=== PATIENT | female | born 1970 | race Caucasian/White ===

== ENCOUNTER 2017-04-19 21:28 | Inpatient (IN) | payer OTHER ==
--- NOTE | 2017-04-19 21:56 | ED ---
Chest Pain HPI - General Chief Complaint: Chest Pain Stated Complaint: Chest Pain Time Seen by Provider: 04/19/17 21:33 Source: patient Mode of arrival: wheelchair Limitations: no limitations - History of Present Illness Initial Comments: This patient is a 46-year-old woman who presents to be evaluated for chest pain that started approximately an hour and half before coming here. The patient states that she had been horseback riding at the time. She indicates the left anterior chest. She states that it felt like at tightness, moderate intensity, and was constant. She did not notice any worsening or relieving factors. The patient states that she also was having a numb sensation to the left arm. She had no diaphoresis, dyspnea, palpitations, lightheadedness or syncope. No nausea or vomiting. No other associated symptoms. She states that she stopped riding and she took 2 aspirin and that the pain has completely resolved now. The patient denies any family history of heart disease except that her father did have a valve replacement at age 88. The patient has never been a smoker. She has not had previous stress test. MD Complaint: chest pain -: hour(s) Onset: during exertion Pain Location: left chest Pain Radiation: LUE Severity: moderate Quality: tightness Consistency: constant Improves With: medication-other Worsens With: nothing (Aspirin) Treatments Prior to Arrival: aspirin - Related Data Home Medications Medication Instructions Recorded Confirmed Progesterone, Micronized 100 mg PO HS 04/19/17 04/19/17 [Progesterone] Allergies Allergy/AdvReac Type Severity Reaction Status Date / Time No Known Allergies Allergy Verified 04/19/17 21:51 Review of Systems ROS Statement: Those systems with pertinent positive or pertinent negative responses have been documented in the HPI. ROS Other: All systems not noted in ROS Statement are negative. Constitutional: Denies: fever, chills ENT: Reports: throat pain Respiratory: Denies: cough, dyspnea Cardiovascular: Reports: chest pain. Denies: palpitations, dyspnea on exertion , orthopnea, edema, syncope Gastrointestinal: Denies: abdominal pain, nausea, vomiting, diarrhea Genitourinary: Denies: dysuria, hematuria Musculoskeletal: Denies: back pain Skin: Denies: rash Neurological: Reports: numbness (Left arm). Denies: headache, weakness, paresthesias Psychiatric: Denies: anxiety EKG Findings - EKG Results: EKG: interpreted by ERMD, WNL, sinus rhythm (Rate 80 bpm), normal axis, normal QRS, normal ST/T, no acute changes - ND, Pacemaker, Normal: Normal tracing: normal tracing Past Medical History Past Medical History: No Reported History History of Any Multi-Drug Resistant Organisms: None Reported Past Surgical History: No Surgical Hx Reported Past Psychological History: No Psychological Hx Reported Smoking Status: Never smoker Past Alcohol Use History: None Reported Past Drug Use History: None Reported General Exam Limitations: no limitations General appearance: alert, in no apparent distress Head exam: Present: atraumatic, normocephalic Eye exam: Present: normal appearance. Absent: scleral icterus, conjunctival injection Neck exam: Present: normal inspection Respiratory exam: Present: normal lung sounds bilaterally. Absent: respiratory distress, wheezes, rales, rhonchi, stridor, chest wall tenderness Cardiovascular Exam: Present: regular rate, normal rhythm, normal heart sounds. Absent: systolic murmur, diastolic murmur, rubs, gallop GI/Abdominal exam: Present: soft. Absent: distended, tenderness, guarding, rebound, rigid, mass, pulsatile mass, hernia Extremities exam: Present: normal inspection, normal capillary refill. Absent: pedal edema, calf tenderness Back exam: Present: normal inspection. Absent: CVA tenderness (R), CVA tenderness (L) Neurological exam: Present: alert Skin exam: Present: warm, dry, intact, normal color. Absent: rash, cyanosis, diaphoretic, erythema, petechiae, pallor, mottled Course Vital Signs 04/19/17 21:37 Temperature 98.9 F Pulse Rate 73 Respiratory 17 Rate Blood Pressure 135/77 O2 Sat by Pulse 98 Oximetry Chest Pain MDM - MDM Patient is a 46-year-old woman who presents with episode of chest pain that resolved and some left arm symptoms that did remain. Initial EKG nondiagnostic for ND. The patient is found to have minimally elevated troponin. Heparin started. Additional medications given in ED. Case discussed with Dr. Goetz casing mixer on-call and his treatment recommendations incorporated. Disposition Clinical Impression: Acute coronary syndrome Disposition: ADMITTED IP TO THIS [facility] Condition: Serious Referrals: None,Stated [Primary Care Provider] - 1-2 days
[2017-04-19 22:01] LABS: Basophils % (A) 0 %; CHCM 34.7; Eosinophils # (A) 0.1 k/uL (0-0.7); Eosinophils % (A) 1 %; HCT 41.8 % (34.0-46.0); HDW 2.34; HGB 14.9 gm/dL (11.4-16.0); Luc # (Auto) 0.22; Luc % (Auto) 2; Lymphocytes # (A) 1.9 k/uL (1.0-4.8); Lymphocytes % (A) 16 %; MCH 30.9 pg (25.0-35.0); MCHC 35.6 g/dL (31.0-37.0); MCV 86.7 fL (80.0-100.0); Mean Platelet Volume 9.3; Monocytes # (A) 0.6 k/uL (0-1.0); Monocytes % (A) 5 %; Neutrophils # (A) 9.4 k/uL (1.3-7.7); Neutrophils % (A) 77 %; RBC 4.82 m/uL (3.80-5.40); RDW 13.6 % (11.5-15.5); WBC 12.3 k/uL (3.8-10.6)
--- NOTE | 2017-04-19 22:02 | XR ---
EXAMINATION TYPE: XR chest 2V DATE OF EXAM: 04/19/2017 COMPARISON: NONE HISTORY: Chest pain TECHNIQUE: Frontal and lateral views of the chest are obtained. FINDINGS: There is no focal air space opacity. No evidence for pneumothorax. No pleural effusion. The cardiac silhouette size is within normal limits. The osseous structures are grossly intact. IMPRESSION: 1. No acute cardiopulmonary process.
[2017-04-19 22:13] LABS: ALT 27 U/L (9-52); AST 22 U/L (14-36); Alkaline Phosphatase 47 U/L (38-126); Amylase 47 U/L (30-110); Anion Gap 9 mmol/L; Blood Urea Nitrogen 15 mg/dL (7-17); Calcium 9.5 mg/dL (8.4-10.2); Carbon Dioxide 26 mmol/L (22-30); Chloride 104 mmol/L (98-107); Glucose 92 mg/dL (74-99); Magnesium 1.9 mg/dL (1.6-2.3); Non-African American GFR(MDRD) >60 (>60 ml/min/1.73 sqM); Potassium 4.1 mmol/L (3.5-5.1); Sodium 139 mmol/L (137-145); Total Bilirubin 0.8 mg/dL (0.2-1.3); Total Protein 7.2 g/dL (6.3-8.2)
[2017-04-19 22:14] LABS: INR 1.1 (<1.1); Partial Thromboplastin Time 23.6 sec (22.0-30.0); Prothrombin Time 10.9 sec (9.0-12.0)
[2017-04-19 22:45] LABS: Creatine Kinase MB 4.5 ng/mL (0.0-2.4); Troponin I 0.131 ng/mL (0.000-0.034)
[2017-04-19] MEDS ORDERED: HEPARIN SODIUM,PORCINE 5,000 UNIT/ML 1 ML VIAL IV ONE (22:54)
[2017-04-19] MEDS ORDERED: HEPARIN SODIUM,PORCINE 5,000 UNIT/ML 1 ML VIAL IV PRN (22:54)
[2017-04-19] MEDS ORDERED: HEPARIN SODIUM,PORCINE/D5W PMX 25,000 UNIT in DEXTROSE/WATER 1 500ML.BAG IV SCH (23:00)
[2017-04-19] MEDS ORDERED: MORPHINE SULFATE 2 MG/ML SYRINGE IVP PRN (23:08)
[2017-04-19] MEDS ORDERED: NITROGLYCERIN SL TABS 0.4 MG TAB SUBLINGUAL PRN (23:08)
[2017-04-19] MEDS ORDERED: ATORVASTATIN 40 MG TAB PO STA (23:20)
[2017-04-19] MEDS ORDERED: NITROGLYCERIN OINT 1 INCH/GM PACKET TOPICAL STA (23:21)
[2017-04-19] MEDS ORDERED: NITROGLYCERIN SL TABS 0.4 MG TAB SUBLINGUAL STA (23:21)
[2017-04-20 05:08] LABS: Basophils % (A) 0 %; CH 29.6; CHCM 33.9; Eosinophils # (A) 0.1 k/uL (0-0.7); Eosinophils % (A) 2 %; HCT 39.7 % (34.0-46.0); HDW 2.32; HGB 13.7 gm/dL (11.4-16.0); Luc # (Auto) 0.17; Luc % (Auto) 3; Lymphocytes # (A) 1.6 k/uL (1.0-4.8); Lymphocytes % (A) 26 %; MCH 30.2 pg (25.0-35.0); MCHC 34.5 g/dL (31.0-37.0); MCV 87.6 fL (80.0-100.0); Mean Platelet Volume 8.9; Monocytes # (A) 0.4 k/uL (0-1.0); Monocytes % (A) 6 %; Neutrophils # (A) 3.8 k/uL (1.3-7.7); Neutrophils % (A) 63 %; RBC 4.54 m/uL (3.80-5.40); RDW 13.4 % (11.5-15.5); WBC 6.1 k/uL (3.8-10.6); WBC (Perox) 5.92
[2017-04-20 05:16] LABS: Cholesterol 151 mg/dL (<200); HDL Cholesterol 68 mg/dL (40-60); Triglycerides 63 mg/dL (<150)
[2017-04-20 05:36] LABS: Creatine Kinase MB 15.2 ng/mL (0.0-2.4)
[2017-04-20 05:37] LABS: Troponin I 2.8 ng/mL (0.000-0.034)
--- NOTE | 2017-04-20 08:14 | P.CRDCN ---
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 Denies any history of hypertension, no diabetes, no hyperlipidemia, she is a nonsmoker. Her father had open heart surgery in his 70s. She presents to the hospital with symptoms of left-sided chest tightness with discomfort and numbness in her left arm. She states that she had been riding horses just prior to this occurring. She did go in the house and take a couple baby aspirin , relaxed for about an hour, but because the symptoms persisted she came to the emergency room for further evaluation. Initial EKG on presentation here shows normal sinus rhythm with no changes. White blood cell count on arrival 12.3, 6.1 this morning. D-dimer 0.37, potassium 4.1, BUN 15, creatinine 0.6. Troponins 0.13, 2.8. Cholesterol 151, HDL 68, LDL 70, triglycerides 63. At the time of my examination this morning, she is currently chest pain-free. Just feels tired. Blood pressure this morning 96/50 with a heart rate in the 70s. Past Medical History Past Medical History: No Reported History History of Any Multi-Drug Resistant Organisms: None Reported Past Surgical History: No Surgical Hx Reported Past Anesthesia/Blood Transfusion Reactions: Unable to Obtain Additional Past Anesthesia/Blood Transfusion Reaction / Comment(s): no previous surgery Past Psychological History: No Psychological Hx Reported Smoking Status: Never smoker - Past Family History Father Family Medical History: Hypertension Additional Family Medical History / Comment(s): CABG with valve replacement Mother Family Medical History: Cancer, Diabetes Mellitus, Hypertension Additional Family Medical History / Comment(s): breast ca, small cell ca Medications and Allergies Home Medications Medication Instructions Recorded Confirmed Type Progesterone, Micronized 100 mg PO HS 04/19/17 04/19/17 History [Progesterone] Allergies Allergy/AdvReac Type Severity Reaction Status Date / Time No Known Allergies Allergy Verified 04/19/17 21:51 Physical Exam Vitals: Vital Signs Temp Pulse Pulse Pulse Resp BP BP 04/20/17 03:51 97 F L 76 18 96/58 04/20/17 00:00 97.9 F 69 69 18 124/85 04/19/17 23:21 81 16 102/68 04/19/17 21:37 98.9 F 73 17 135/77 Pulse Ox 04/20/17 03:51 99 04/20/17 00:00 100 04/19/17 23:21 97 04/19/17 21:37 98 Intake and Output 04/19/17 04/20/17 04/20/17 22:59 06:59 14:59 Intake Total 322.278 Balance 322.278 Intake: IV 240 NS 240 Intake, IV Titration 82.278 Amount Heparin Sodium,Porcine/ 82.278 D5w Pmx 25,000 unit In Dextrose/Water 1 500ml. bag @ 12 UNITS/KG/HR 13. 06 mls/hr IV .Q24H [facility] Rx #:[id number] Other: Voiding Method Toilet # Voids 1 Weight 54.431 kg 57.3 kg PHYSICAL EXAMINATION: HEENT: Head is atraumatic, normocephalic. Pupils equal, round. Neck is supple. There is no elevated jugular venous pressure. HEART EXAMINATION: Heart S1, S2 normal. No murmur or gallop heard. CHEST EXAMINATION: Lungs are clear to auscultation and precussion. No chest wall tenderness is noted on palpation or with deep breathing. ABDOMEN: Soft, nontender. Bowel sounds are heard. No organomegaly noted. EXTREMITIES: 2+ peripheral pulses with no evidence of peripheral edema and no calf tenderness noted. NEUROLOGIC patient is awake, alert and oriented -3. . Results 04/20/17 04:44 04/19/17 21:43 Cardiac Enzymes 04/19/17 04/19/17 04/20/17 Range/Units 21:43 21:43 04:44 AST 22 (14-36) U/L CK-MB (CK-2) 4.5 H* 15.2 H* (0.0-2.4) ng/mL Troponin I 0.131 H* 2.800 H* (0.000-0.034) ng/mL Coagulation 04/19/17 04/20/17 Range/Units 21:43 04:44 PT 10.9 (9.0-12.0) sec APTT 23.6 30.1 H (22.0-30.0) sec Lipids 04/20/17 Range/Units 04:44 Triglycerides 63 (<150) mg/dL Cholesterol 151 (<200) mg/dL HDL Cholesterol 68 H (40-60) mg/dL CBC 04/19/17 04/20/17 Range/Units 21:43 04:44 WBC 12.3 H 6.1 (3.8-10.6) k/uL RBC 4.82 4.54 (3.80-5.40) m/uL Hgb 14.9 13.7 (11.4-16.0) gm/dL Hct 41.8 39.7 (34.0-46.0) % Plt Count 184 161 (150-450) k/uL Comprehensive Metabolic Panel 04/19/17 Range/Units 21:43 Sodium 139 (137-145) mmol/L Potassium 4.1 (3.5-5.1) mmol/L Chloride 104 (98-107) mmol/L Carbon Dioxide 26 (22-30) mmol/L BUN 15 (7-17) mg/dL Creatinine 0.69 (0.52-1.04) mg/dL Glucose 92 (74-99) mg/dL Calcium 9.5 (8.4-10.2) mg/dL AST 22 (14-36) U/L ALT 27 (9-52) U/L Alkaline Phosphatase 47 (38-126) U/L Total Protein 7.2 (6.3-8.2) g/dL Albumin 4.4 (3.5-5.0) g/dL Current Medications Generic Name Dose Route Start Last Admin Trade Name Freq PRN Reason Stop Dose Admin Heparin Sodium (Porcine) 0 unit 04/19/17 22:54 04/20/17 05:31 Heparin IV 1,375 unit PER PROTOCOL PRN Administration Low PTT Protocol Heparin Sodium/Dextrose 25,000 500 mls @ 13.06 mls/hr 04/19/17 23:00 05:28 unit/ IV Solution IV 15 units/kg/hr .Q24H [facility] 16.32 mls/hr Protocol Titration 12 UNITS/KG/HR Metoprolol Tartrate 25 mg 04/20/17 09:00 Lopressor PO BID [facility] Morphine Sulfate 2 mg 04/19/17 23:08 Morphine Sulfate (Inj) IVP Q5M PRN Chest Pain Nitroglycerin 0.4 mg 04/19/17 23:08 Nitrostat SUBLINGUAL Q5M PRN Chest Pain Intake and Output 04/19/17 04/20/17 04/20/17 22:59 06:59 14:59 Intake Total 322.278 Balance 322.278 Intake: IV 240 NS 240 Intake, IV Titration 82.278 Amount Heparin Sodium,Porcine/ 82.278 D5w Pmx 25,000 unit In Dextrose/Water 1 500ml. bag @ 12 UNITS/KG/HR 13. 06 mls/hr IV .Q24H [facility] Rx #:[id number] Other: Voiding Method Toilet # Voids 1 Weight 54.431 kg 57.3 kg 04/20/17 04:44 04/19/17 21:43 EKG Interpretations (text) EKG shows normal sinus rhythm with no acute changes. Assessment and Plan Plan: Assessment and plan #1 chest pain, suggestive of acute coronary syndrome. Troponins 0.1, 2.8. EKG shows normal sinus rhythm with no acute changes. #2 cardiac risk factors negative for hypertension, no diabetes, no hyperlipidemia, she is a nonsmoker. Father had coronary artery bypass grafting surgery at the age of 70. Plan We will obtain a stat echocardiogram with Doppler study. Continue IV heparin, initiate an aspirin now and daily, continue Lipitor and Nitropaste. Patient has been advised that she may need to undergo cardiac catheterization for more definitive diagnosis. The risks and the benefits were explained to the patient in detail. Further recommendations to follow. DNP note has been reviewed, I agree with a documented findings and plan of care. Patient was seen and examined.
[2017-04-20] MEDS: METOPROLOL TARTRATE 25 MG TAB PO SCH ×3 (09:11→20:45)
[2017-04-20] MEDS ORDERED: ASPIRIN 325 MG TAB PO STA (09:29)
[2017-04-20] MEDS ORDERED: ATORVASTATIN 80 MG TAB PO STA (09:29)
[2017-04-20] MEDS ORDERED: ALPRAZolam 0.25 MG TAB PO PRN (09:29)
[2017-04-20] MEDS ORDERED: NITROGLYCERIN SL TABS 0.4 MG TAB SUBLINGUAL PRN (09:29)
[2017-04-20] MEDS ORDERED: ALPRAZolam 0.5 MG TAB PO PRN (09:29)
[2017-04-20] MEDS ORDERED: SODIUM CHLORIDE 0.9% 1,000 ML in EMPTY BAG 1 BAG IV ONE (09:29)
[2017-04-20] MEDS ORDERED: LIDOCAINE 2% INJ 20 MG/ML (20 ML MDV) ONE (09:50)
[2017-04-20] MEDS ORDERED: VERAPAMIL 2.5 MG/ML 2 ML AMP ONE ×2 (09:50→11:29)
[2017-04-20] MEDS ORDERED: HEPARIN SODIUM 1,000 UN/ML (10ML VL) ONE (09:50)
--- NOTE | 2017-04-20 10:33 | ECHOF ---
Referral Reason:assess lvf MEASUREMENTS -------- HEIGHT: 165.1 cm WEIGHT: 57.2 kg BP: 140/30 IVSd: 0.8 cm (0.6 - 1.1) LVIDd: 4.5 cm (3.9 - 5.3) LVPWd: 1.0 cm (0.6 - 1.1) IVSs: 1.1 cm LVIDs: 3.5 cm LVPWs: 1.1 cm LA Diam: 2.7 cm (2.7 - 3.8) LAESV Index (A-L): 18.60 ml/m Ao Diam: 3.1 cm (2.0 - 3.7) AV Cusp: 1.8 cm (1.5 - 2.6) LA Diam: 2.2 cm (2.7 - 3.8) MV EXCURSION: 22.473 mm (> 18.000) MV EF SLOPE: 90 mm/s (70 - 150) EPSS: 1.2 cm MV E Alexander: 0.60 m/s MV DecT: 192 ms MV A Alexander: 0.54 m/s MV E/A Ratio: 1.11 RAP: 5.00 mmHg RVSP: 18.84 mmHg FINDINGS -------- Sinus rhythm. This was a technically good study. Left ventricular wall thickness is normal. Overall left ventricular systolic function is low-normal with, an EF between 50 - 55 %. Apical anterior LV wall motion is hypokinetic. Apical septum LV wall motion is hypokinetic. The right ventricle is normal in size. Normal LA size by volume 22+/-6 ml/m2. The right atrial size is normal. The aortic valve is trileaflet, and appears structurally normal. No aortic stenosis or regurgitation. The mitral valve is normal. Mild mitral regurgitation is present. Mild tricuspid regurgitation present. There is no evidence of pulmonary hypertension. The right ventricular systolic pressure, as measured by Doppler, is 18.84mmHg. Trace/mild (physiologic) pulmonic regurgitation. The aortic root size is normal. There is no pericardial effusion. CONCLUSIONS -------- 1. Sinus rhythm. 2. Mild tricuspid regurgitation present. 3. There is no evidence of pulmonary hypertension. 4. Trace/mild (physiologic) pulmonic regurgitation. 5. The aortic root size is normal. 6. There is no pericardial effusion. 7. This was a technically good study. 8. Left ventricular wall thickness is normal. 9. Overall left ventricular systolic function is low-normal with, an EF between 50 - 55 %. 10. Apical anterior LV wall motion is hypokinetic. 11. Apical septum LV wall motion is hypokinetic. 12. Normal LA size by volume 22+/-6 ml/m2. 13. The aortic valve is trileaflet, and appears structurally normal. No aortic stenosis or regurgitation. 14. Mild mitral regurgitation is present. JACQUARD FIXER: Yeni Silvestre RDCS
[2017-04-20] MEDS ORDERED: diphenhydrAMINE 50 MG/ML 1 ML VIAL ONE (10:44)
[2017-04-20] MEDS ORDERED: MIDAZOLAM 2 MG/2 ML VIAL ONE (10:44)
[2017-04-20] MEDS: MIDAZOLAM 2 MG/2 ML VIAL IV ONE ×2 (10:59→11:07)
[2017-04-20] MEDS ORDERED: diphenhydrAMINE 50 MG/ML 1 ML VIAL IVP ONE (10:59)
[2017-04-20] MEDS ORDERED: LIDOCAINE 2% INJ 20 MG/ML SQ ONE (11:05)
[2017-04-20 11:07] LABS: Creatine Kinase MB 14.6 ng/mL (0.0-2.4); Troponin I 2.46 ng/mL (0.000-0.034)
[2017-04-20] MEDS: VERAPAMIL SYRINGE (5 MG/10 ML) INTRAARTER ONE ×2 (11:09→11:11)
[2017-04-20] MEDS ORDERED: VERAPAMIL SYRINGE (5 MG/10 ML) INTRAARTER ONE (11:30)
[2017-04-20] MEDS ORDERED: IOHEXOL 350 MG/ML 100 ML BOTTLE INJ ONE (11:31)
[2017-04-20] MEDS ORDERED: RX INFO: IV CONTRAST WAS GIVEN 1 EACH MISC MISCELLANE PRN (11:41)
[2017-04-20] MEDS ORDERED: CLOPIDOGREL 75 MG TAB ONE (14:17)
--- NOTE | 2017-04-20 14:51 | P.HPIM ---
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 Denies any history of hypertension, no diabetes, no hyperlipidemia, she is a nonsmoker. . She presents to the hospital with symptoms of left-sided chest tightness with discomfort and numbness in her left arm, patient denied and diaphoresis but was short of breath. Her chest pain is nonpleuritic not associated with food.. She states that she had been riding horses just prior to this occurring. She did go in the house and take a couple baby aspirin, relaxed for about an hour, but because the symptoms persisted she came to the emergency room for further evaluation. The pain lasted for about one and half hour and improved with supplemental visiting that she was given in ER. Initial EKG on presentation here shows normal sinus rhythm with no changes. Patient's troponin has gone up to around 2.5. Patient underwent cardiac ablation which did not show any occlusive disease. 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 Patient is chest pain-free at this point of time. Patient denied any URI flulike symptoms before this event. Review of Systems REVIEW OF SYSTEMS: CONSTITUTIONAL: No fever, no malaise, no fatigue. HEENT: No recent visual problems or hearing problems. Denied any sore throat. CARDIOVASCULAR: No , orthopnea, PND, no palpitations, no syncope. PULMONARY: , no cough, no hemoptysis. GASTROINTESTINAL: No diarrhea, no nausea, no vomiting, no abdominal pain. Normoactive bowel sounds. NEUROLOGICAL: No headaches, no weakness, no numbness. HEMATOLOGICAL: Denies any bleeding or petechiae. GENITOURINARY: Denies any burning micturition, frequency, or urgency. MUSCULOSKELETAL/RHEUMATOLOGICAL: Denies any joint pain, swelling, or any muscle pain. ENDOCRINE: Denies any polyuria or polydipsia. The rest of the 14-point review of systems is negative. Past Medical History Past Medical History: No Reported History History of Any Multi-Drug Resistant Organisms: None Reported Past Surgical History: No Surgical Hx Reported Past Anesthesia/Blood Transfusion Reactions: Unable to Obtain Additional Past Anesthesia/Blood Transfusion Reaction / Comment(s): no previous surgery Past Psychological History: No Psychological Hx Reported Smoking Status: Never smoker - Past Family History Father Family Medical History: Hypertension Additional Family Medical History / Comment(s): CABG with valve replacement Mother Family Medical History: Cancer, Diabetes Mellitus, Hypertension Additional Family Medical History / Comment(s): breast ca, small cell ca Medications and Allergies Home Medications Medication Instructions Recorded Confirmed Type Progesterone, Micronized 100 mg PO HS 04/19/17 04/19/17 History [Progesterone] Allergies Allergy/AdvReac Type Severity Reaction Status Date / Time No Known Allergies Allergy Verified 04/19/17 21:51 Physical Exam Vitals: Vital Signs Temp Pulse Pulse Pulse Resp BP BP 04/20/17 12:26 98.5 F 79 18 100/63 04/20/17 12:00 66 04/20/17 11:55 98.5 F 66 16 91/59 04/20/17 09:44 04/20/17 08:00 98.8 F 79 16 103/64 04/20/17 03:51 97 F L 76 18 96/58 04/20/17 00:00 97.9 F 69 69 18 124/85 04/19/17 23:21 81 16 102/68 04/19/17 21:37 98.9 F 73 17 135/77 Pulse Ox 04/20/17 12:26 99 04/20/17 12:00 04/20/17 11:55 99 04/20/17 09:44 98 04/20/17 08:00 99 04/20/17 03:51 99 04/20/17 00:00 100 04/19/17 23:21 97 04/19/17 21:37 98 Intake and Output 04/19/17 04/20/17 04/20/17 22:59 06:59 14:59 Intake Total 322.278 340 Balance 322.278 340 Intake: IV 240 100 NS 240 Intake, IV Titration 82.278 Amount Heparin Sodium,Porcine/ 82.278 D5w Pmx 25,000 unit In Dextrose/Water 1 500ml. bag @ 12 UNITS/KG/HR 13. 06 mls/hr IV .Q24H [facility] Rx #:[id number] Oral 240 Other: Voiding Method Toilet # Voids 1 Weight 54.431 kg 57.3 kg PHYSICAL EXAMINATION: GENERAL: The patient is alert and oriented x3, not in any acute distress. Well developed, well nourished. HEENT: Pupils are round and equally reacting to light. EOMI. No scleral icterus. No conjunctival pallor. Normocephalic, atraumatic. No pharyngeal erythema. No thyromegaly. CARDIOVASCULAR: S1 and S2 present. No murmurs, rubs, or gallops. PULMONARY: Chest is clear to auscultation, no wheezing or crackles. ABDOMEN: Soft, nontender, nondistended, normoactive bowel sounds. No palpable organomegaly. MUSCULOSKELETAL: No joint swelling or deformity. EXTREMITIES: No cyanosis, clubbing, or pedal edema. NEUROLOGICAL: Gross neurological examination did not reveal any focal deficits. SKIN: No rashes. Results CBC & Chem 7: 04/20/17 04:44 04/19/17 21:43 Labs: Abnormal Lab Results - Last 24 Hours (Table) 04/19/17 04/19/17 04/20/17 Range/Units 21:43 21:43 04:44 WBC 12.3 H (3.8-10.6) k/uL Neutrophils # 9.4 H (1.3-7.7) k/uL APTT 30.1 H (22.0-30.0) sec Total Creatine Kinase 175 H (30-135) U/L CK-MB (CK-2) 4.5 H* (0.0-2.4) ng/mL Troponin I 0.131 H* (0.000-0.034) ng/mL HDL Cholesterol (40-60) mg/dL 04/20/17 04/20/17 04/20/17 Range/Units 04:44 04:44 10:00 WBC (3.8-10.6) k/uL Neutrophils # (1.3-7.7) k/uL APTT (22.0-30.0) sec Total Creatine Kinase 249 H 277 H (30-135) U/L CK-MB (CK-2) 15.2 H* 14.6 H* (0.0-2.4) ng/mL Troponin I 2.800 H* 2.460 H* (0.000-0.034) ng/mL HDL Cholesterol 68 H (40-60) mg/dL Thrombosis Risk Factor Assmnt - Choose All That Apply Each Factor Represents 1 point: Age 41-60 years Thrombosis Risk Factor Assessment Total Risk Factor Score: 1 Thrombosis Risk Factor Assessment Level: Low Risk Assessment and Plan Plan: Possible acute myocardial infarction: Patient may have had vaso-spastic angina with clean coronaries. As her blood pressure is low we are not starting on any calcium channel maricruz at this point of time. Patient does not appear to have any stress-induced cardiomyopathy. Elevated troponins: Secondary to vaso-spastic angina.
--- NOTE | 2017-04-20 16:44 | CC ---
DATE OF SERVICE: 04/20/2017 PROCEDURE: Left heart catheterization, coronary angiography, and left ventriculography. PERFORMED BY: Dr. Matthieu Arboleda. CLINICAL INFORMATION: Mrs. Omaira Santiago is a 46 year old lady with a family history of premature CAD but no other risk factors. Yesterday, she was with her daughter riding her horses and then she felt an uncomfortable feeling in the chest with numbness in the left arm and also pressure in the chest. With this she stopped the riding, went back home, laid down and continued to have these symptoms. She came into the hospital and by the time she got here, she had relief of symptoms. Her troponin has gone up to 2.8 and has now showed a downward trend suggestive of a non-ST elevation OR. EKG was unremarkable. There was no recurrence of pain. She is hemodynamically stable. She was advised coronary angiography given her presentation and abnormal troponin. Risks, benefits, options and rationale were explained to the patient and her fiance. PROCEDURE NOTE: Under local anesthesia and strict aseptic precautions, a 6 [place] introducer was placed in the right radial artery. I used a 3.5 curved right Jacob catheter to cannulate the right coronary artery and a JL4 catheter for the left coronary artery. A pigtail catheter was used to perform an LV gram. The sheath was taken out and a Vasc band was used to secure hemostasis. Saturation of the fingers of the hands was 97%. The patient tolerated the procedure well without complications. The patient received moderate conscious sedation for a total duration of 37 minutes with a combination of Versed and Benadryl. CARDIAC CATHETERIZATION FINDINGS: The left ventricle end diastolic pressure was 13 mmHg and there was no gradient across the aortic valve. LEFT VENTRICULOGRAM: This was performed in 30 degree DUBOSE projection, revealed the left ventricle which is normal size with preserved systolic function. There was some ventricular ectopy. The ejection fraction appears to be the normal range of about 55% without any clear cut wall motion abnormality. Because of ectopy, the contractility seems somewhat asymmetrical. There is no significant mitral regurgitation. CORONARY ANGIOGRAPHY FINDINGS: Right coronary artery technically a dominant vessel, has no significant disease in the proximal mid or distal portion. Distally bifurcates into PDA and PLV both of which have minor diffuse disease. No significant disease is noted. There is some diffuse irregularity in the PDA branch of the RCA. Overall, no significant disease in the dominant RCA. Left main coronary artery: Short, patent, disease free vessel that bifurcates into LAD and circumflex. Left anterior descending coronary artery: Good caliber vessel extends along the anterior wall gives off septal branches, a good size diagonal branch in the mid portion, runs all the way to the apex and supplies a sizable amount of myocardium. No significant disease in the good sized, good caliber, LAD system. Left posterior circumflex coronary artery: Technically a nondominant vessel gives off a small obtuse marginal in the mid portion. Distally continues as a good obtuse marginal and a small diffusely diseased distal posterolateral branch. This is a small branch with actual tapering. Has mild diffuse disease in it. No significant disease is noted in the nondominant circumflex. FINAL IMPRESSION: This patient has a right dominant system, has no significant obstructive disease of major arteries, has some diffuse disease in the distal branch of the circumflex and PDA branch of the RCA but no focal critical stenosis is noted. Ejection fraction appears to be normal range although there was some ectopy. Filling pressures are normal. RECOMMENDATIONS: The findings were discussed with the patient and her family. I am recommending continued medical therapy with risk factor modifications. No intervention is necessary at this time. I will however obtain a repeat echocardiogram tomorrow to check if there is any takotsubo type picture which was not evident on the study today. While troponin ( ) cannot be explained based on the anatomy, I suspect there may be a small branch that was involved that was not easily ( ) on angiography. I discussed this with the patient and family. BENIGNO
[2017-04-20 17:36] VITALS: RESP 16
[2017-04-20] MEDS: ENOXAPARIN 60 MG/0.6 ML SYRINGE SQ SCH (18:45)
[2017-04-20] MEDS: SODIUM CHLORIDE 0.9% 1,000 ML IV SCH (18:46)
[2017-04-21 06:31] LABS: Basophils % (A) 0 %; CH 29.8; CHCM 34.1; Eosinophils # (A) 0.1 k/uL (0-0.7); Eosinophils % (A) 2 %; HCT 42.1 % (34.0-46.0); HDW 2.33; HGB 14.9 gm/dL (11.4-16.0); Luc # (Auto) 0.19; Luc % (Auto) 3; Lymphocytes # (A) 1.7 k/uL (1.0-4.8); Lymphocytes % (A) 25 %; MCH 31.2 pg (25.0-35.0); MCHC 35.4 g/dL (31.0-37.0); MCV 88.1 fL (80.0-100.0); Mean Platelet Volume 8.8; Monocytes # (A) 0.5 k/uL (0-1.0); Monocytes % (A) 7 %; Neutrophils # (A) 4.3 k/uL (1.3-7.7); Neutrophils % (A) 63 %; RBC 4.78 m/uL (3.80-5.40); RDW 13.8 % (11.5-15.5); WBC 6.9 k/uL (3.8-10.6); WBC (Perox) 7.04
[2017-04-21] MEDS: ENOXAPARIN 60 MG/0.6 ML SYRINGE SQ SCH (06:31)
[2017-04-21] MEDS: SODIUM CHLORIDE 0.9% 1,000 ML IV SCH (07:36)
[2017-04-21] MEDS: METOPROLOL TARTRATE 25 MG TAB PO SCH (07:36)
[2017-04-21 08:34] VITALS: PULSE 78; TEMP 98.2
[2017-04-21] MEDS ORDERED: ATORVASTATIN 40 MG TAB PO SCH (09:00)
[2017-04-21 09:17] VITALS: BP 123/79
--- NOTE | 2017-04-21 14:08 | P.DS ---
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 Denies any history of hypertension, no diabetes, no hyperlipidemia, she is a nonsmoker. . She presents to the hospital with symptoms of left-sided chest tightness with discomfort and numbness in her left arm, patient denied and diaphoresis but was short of breath. Her chest pain is nonpleuritic not associated with food.. She states that she had been riding horses just prior to this occurring. She did go in the house and take a couple baby aspirin, relaxed for about an hour, but because the symptoms persisted she came to the emergency room for further evaluation. The pain lasted for about one and half hour and improved with supplemental visiting that she was given in ER. Initial EKG on presentation here shows normal sinus rhythm with no changes. Patient's troponin has gone up to around 2.5. Patient underwent cardiac ablation which did not show any occlusive disease. 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 Patient is chest pain-free at this point of time. Patient denied any URI flulike symptoms before this event. 04/21/2017 Patient is clinically doing well and is cleared for discharge from cardiac perspective and cardiology we will address a discharge cardiac medications. 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 Patient Condition at Discharge: Serious Plan - Discharge Summary New Discharge Prescriptions: No Action Progesterone, Micronized [Progesterone] 100 mg PO HS Discharge Medication List Progesterone, Micronized [Progesterone] 100 mg PO HS 04/19/17 [History] Follow up Appointment(s)/Referral(s): Shannon Arboleda MD [STAFF PHYSICIAN] - 04/24/17 4:45 pm None,Stated [Primary Care Provider] - 1-2 days
--- NOTE | 2017-04-21 16:28 | PN ---
Mrs. Santiago underwent cardiac cath yesterday. She presented with a non-ST elevation NM but cardiac cath did not reveal any evidence of obstruction of any of her major arteries, possibly some branch may be occluded. Her right radial cath site is clean and dry. Vital signs are stable. S1, S2 heard normally. Lungs are clear. Abdomen and lower extremity exam is unchanged. I am recommending that she should be discharged on aspirin and Lipitor and a small dose of beta maricruz. Advised not to return to work ( ) see her on Monday. Discharge instructions regarding, activity, diet and medications were given. BENIGNO
== END 2017-04-21 15:05 | disposition home or self-care (01) | DRG 287 ==
LOC: EC 21:28 → 6SEL 23:08
PROVIDERS: ADMIT Hospitalist; ATTEND Hospitalist
PROC: 4A023N7 Measurement of Cardiac Sampling and Pressure, Left Heart, Percutaneous Approach (ICD-10-PCS; principal; 2017-04-19)
PROC: B2111ZZ Fluoroscopy of Multiple Coronary Arteries using Low Osmolar Contrast (ICD-10-PCS; principal; 2017-04-19)
PROC: B2151ZZ Fluoroscopy of Left Heart using Low Osmolar Contrast (ICD-10-PCS; principal; 2017-04-19)
DX: I20.9 Angina pectoris, unspecified (principal); Z80.3 Family history of malignant neoplasm of breast; Z82.49 Family history of ischemic heart disease and other diseases of the circulatory system; Z83.3 Family history of diabetes mellitus
CPT/HCPCS: 36415; 71020; 80053; 80061; 82150; 82550; 82553; 83690; 83735; 84484; 85025; 85379; 85610; 85730; 93005; 93306; 93458; 94760; 96365; 96376; 99285

== ENCOUNTER → 2017-05-12 | Outpatient (CLI) | payer OTHER ==
--- NOTE | 2017-05-15 11:44 | MM ---
Reason for exam: screening (asymptomatic). Last mammogram was performed 1 year and 7 months ago. History: Patient had first child at age 37. Family history of breast cancer in mother at age 69. Taking hormonal contraceptives beginning at age 44. Physical Findings: A clinical breast exam by your physician is recommended on an annual basis and results should be correlated with mammographic findings. MG 3D Screening Mammo W/Cad Bilateral CC and MLO view(s) were taken. Prior study comparison: October 07, 2015, bilateral MG 3d screening mammo w/cad. May 26, 2014, bilateral MG screening mammo w CAD. The breast tissue is extremely dense which could obscure a lesion on mammography. Finding: There are typically benign calcifications in the right breast. No significant changes in finding since October 07, 2015 and May 26, 2014. ASSESSMENT: Benign, BI-RAD 2 RECOMMENDATION: Routine screening mammogram of both breasts in 1 year.
== END ==
LOC: RADMAMWWP 13:36
PROVIDERS: ATTEND Obstetrics & Gynecology
DX: Z12.31 Encounter for screening mammogram for malignant neoplasm of breast (principal); Z80.3 Family history of malignant neoplasm of breast
CPT/HCPCS: 77063; G0202

== ENCOUNTER → 2018-08-08 | Outpatient (CLI) | payer OTHER ==
--- NOTE | 2018-08-10 10:04 | MM ---
Reason for exam: screening (asymptomatic). Last mammogram was performed 1 year and 3 months ago. History: Patient had first child at age 37. Family history of breast cancer in mother at age 69. Taking hormonal contraceptives beginning at age 44. Physical Findings: A clinical breast exam by your physician is recommended on an annual basis and results should be correlated with mammographic findings. MG 3D Screening Mammo W/Cad Bilateral CC and MLO view(s) were taken. Prior study comparison: May 12, 2017, bilateral MG 3d screening mammo w/cad. October 07, 2015, bilateral MG 3d screening mammo w/cad. The breast tissue is extremely dense which could obscure a lesion on mammography. No significant changes when compared with prior studies. ASSESSMENT: Benign, BI-RAD 2 RECOMMENDATION: Routine screening mammogram of both breasts in 1 year.
== END | disposition home or self-care (01) ==
LOC: RADMAMWWP 12:39
PROVIDERS: ATTEND Obstetrics & Gynecology
DX: Z12.31 Encounter for screening mammogram for malignant neoplasm of breast (principal); Z80.3 Family history of malignant neoplasm of breast
CPT/HCPCS: 77063; 77067

== ENCOUNTER → 2019-10-24 | Outpatient (CLI) | payer OTHER ==
--- NOTE | 2019-10-28 08:54 | MM ---
Reason for exam: screening (asymptomatic). Last mammogram was performed 1 year and 3 months ago. History: Patient had first child at age 37. Family history of breast cancer in mother at age 69. Took hormonal contraceptives beginning at age 44. Physical Findings: A clinical breast exam by your physician is recommended on an annual basis and results should be correlated with mammographic findings. MG 3D Screening Mammo W/Cad Bilateral CC and MLO view(s) were taken. Prior study comparison: August 08, 2018, bilateral MG 3d screening mammo w/cad. May 12, 2017, bilateral MG 3d screening mammo w/cad. The breast tissue is extremely dense which could obscure a lesion on mammography. No significant changes when compared with prior studies. ASSESSMENT: Negative, BI-RAD 1 RECOMMENDATION: Routine screening mammogram of both breasts in 1 year.
== END | disposition home or self-care (01) ==
LOC: RADMAMWWP 16:48
PROVIDERS: ATTEND Obstetrics & Gynecology
DX: Z12.31 Encounter for screening mammogram for malignant neoplasm of breast (principal)
CPT/HCPCS: 77063; 77067

== ENCOUNTER → 2020-06-03 | Outpatient (CLI) | payer OTHER ==
[2020-06-03 16:39] LABS: Chol/HDL Ratio 2.01; LDL Cholesterol,Calculated 68.4 mg/dL (0.0-131.0); VLDL Calculation 11.6 mg/dL (5.00-40.00)
== END | disposition home or self-care (01) ==
LOC: LABWHC1 09:32
PROVIDERS: ATTEND Internal Medicine Interventional Cardiology
DX: E78.5 Hyperlipidemia, unspecified (principal)
CPT/HCPCS: 36415; 80061; 82550; 84450; 84460

== ENCOUNTER → 2021-01-19 | Outpatient (CLI) | payer OTHER ==
--- NOTE | 2021-01-20 11:36 | MM ---
Reason for exam: screening (asymptomatic). Last mammogram was performed 1 year and 3 months ago. History: Patient had first child at age 37. Family history of breast cancer in mother at age 69. Took hormonal contraceptives beginning at age 44. Physical Findings: A clinical breast exam by your physician is recommended on an annual basis and results should be correlated with mammographic findings. MG 3D Screening Mammo W/Cad Bilateral CC and MLO view(s) were taken. Prior study comparison: October 24, 2019, bilateral MG 3d screening mammo w/cad. August 08, 2018, bilateral MG 3d screening mammo w/cad. The breast tissue is heterogeneously dense. This may lower the sensitivity of mammography. Asymmetric breast tissue right medial breast, stable. There is no discrete abnormality. ASSESSMENT: Negative, BI-RAD 1 RECOMMENDATION: Routine screening mammogram of both breasts in 1 year.
== END | disposition home or self-care (01) ==
LOC: RADMAMWWP 08:55
PROVIDERS: ATTEND Obstetrics & Gynecology
DX: Z12.31 Encounter for screening mammogram for malignant neoplasm of breast (principal); Z80.3 Family history of malignant neoplasm of breast
CPT/HCPCS: 77063; 77067

== ENCOUNTER → 2022-08-04 | Outpatient (CLI) | payer OTHER ==
--- NOTE | 2022-08-05 10:00 | MM ---
Reason for Exam: Screening (asymptomatic). Last mammogram was performed 1 year(s) and 6 month(s) ago. Patient History: Menarche at age 12. First Full-Term at age 37. Late child-bearing (after 30). Hormonal Contraceptives, starting at age 44. Mother had breast cancer, age 69. Last menstrual period: 04/08/2022 Risk Values: Yvonne 5 year model risk: 2.1%. NCI Lifetime model risk: 14.9%. Prior Study Comparison: 08/08/2018 Bilateral Screening Mammogram, [facility]. 10/24/2019 Bilateral Screening Mammogram, [facility]. 01/19/2021 Bilateral Screening Mammogram, [facility]. Tissue Density: The breast tissue is heterogeneously dense. This may lower the sensitivity of mammography. Findings: Analyzed By CAD. There is no suspicious group of microcalcifications or new suspicious mass in either breast. Overall Assessment: Negative, BI-RAD 1 Management: Screening Mammogram of both breasts in 1 year. A clinical breast exam by your physician is recommended on an annual basis and results should be correlated with mammographic findings. [facility] will attempt to contact patient to return for supplemental views and ultrasound if indicated. Electronically signed and approved by: Adolfo Jackson DO
== END | disposition home or self-care (01) ==
LOC: RADMAMWWP 13:11
PROVIDERS: ATTEND Obstetrics & Gynecology
DX: Z12.31 Encounter for screening mammogram for malignant neoplasm of breast (principal); Z80.3 Family history of malignant neoplasm of breast
CPT/HCPCS: 77063; 77067

== ENCOUNTER → 2023-11-30 | Outpatient (CLI) | payer OTHER ==
--- NOTE | 2023-12-01 19:22 | MM ---
Reason for Exam: Screening (asymptomatic). Last mammogram was performed 1 year(s) and 4 month(s) ago. Patient History: Menarche at age 12. First Full-Term at age 37. Late child-bearing (after 30). Postmenopausal. Hormonal Contraceptives, starting at age 44. Mother had breast cancer, age 69. Risk Values: Yvonne 5 year model risk: 2.2%. NCI Lifetime model risk: 14.6%. Prior Study Comparison: 10/24/2019 Bilateral Screening Mammogram, [facility]. 01/19/2021 Bilateral Screening Mammogram, [facility]. 08/04/2022 Bilateral MG 3D screening mammo w/cad, [facility]. Tissue Density: The breast tissue is heterogeneously dense. This may lower the sensitivity of mammography. Findings: Analyzed By CAD. Bilateral areas of asymmetric density remain unchanged. There is no suspicious group of microcalcifications or new suspicious mass in either breast. Overall Assessment: Benign, BI-RAD 2 Management: Screening Mammogram of both breasts in 1 year. . Patient should continue monthly self-breast exams. A clinical breast exam by your physician is recommended on an annual basis. This exam should not preclude additional follow-up of suspicious palpable abnormalities. Note on Yvonne scores and lifetime risk: 1. A Yvonne score greater than 3% is considered moderate risk. If this is the case, consider specialist referral to assess eligibility for a risk reducing agent. 2. If overall lifetime risk for the development of breast cancer is 20% or higher, the patient may qualify for future screening with alternating mammogram and breast MRI. Electronically signed and approved by: Serena Monterroso M.D. Radiologist
== END | disposition home or self-care (01) ==
LOC: RADMAMWWP 08:47
PROVIDERS: ATTEND Obstetrics & Gynecology
DX: Z12.31 Encounter for screening mammogram for malignant neoplasm of breast (principal); Z80.3 Family history of malignant neoplasm of breast; Z78.0 Asymptomatic menopausal state
CPT/HCPCS: 77063; 77067

== ENCOUNTER → 2025-02-11 | Outpatient (CLI) | payer OTHER ==
--- NOTE | 2025-02-11 14:41 | MM ---
Reason for Exam: Screening (asymptomatic). Last mammogram was performed 1 year(s) and 3 month(s) ago. Patient History: Menarche at age 12. First Full-Term at age 37. Late child-bearing (after 30). Postmenopausal. Patient has history of breast feeding. Hormonal Contraceptives, starting at age 44. Mother had breast cancer, age 69. Risk Values: Yvonne 5 year model risk: 2.3%. NCI Lifetime model risk: 14.3%. Prior Study Comparison: 01/19/2021 Bilateral Screening Mammogram, [facility]. 08/04/2022 Bilateral MG 3D screening mammo w/cad, [facility]. 11/30/2023 Bilateral MG 3D screening mammo w/cad, [facility]. Tissue Density: The breasts are heterogeneously dense, which may obscure small masses. Findings: Analyzed By CAD. Right breast: There is no suspicious group of microcalcifications or new suspicious mass. Left breast: There is no suspicious group of microcalcifications or new suspicious mass. Overall Assessment: Negative, BI-RAD 1 Management: Screening Mammogram of both breasts in [address] [facility] will attempt to contact patient to return for supplemental views and ultrasound if indicated. Patient should continue monthly self-breast exams. A clinical breast exam by your physician is recommended on an annual basis. This exam should not preclude additional follow-up of suspicious palpable abnormalities. Note on Yvonne scores and lifetime risk: 1. A Yvonne score greater than 3% is considered moderate risk. If this is the case, consider specialist referral to assess eligibility for a risk reducing agent. 2. If overall lifetime risk for the development of breast cancer is 20% or higher, the patient may qualify for future screening with alternating mammogram and breast MRI. [facility], , 02/11/2025 2:39 PM. Electronically signed and approved by: Adolfo Jackson DO
== END | disposition home or self-care (01) ==
LOC: RADMAMWWP 14:12
PROVIDERS: ATTEND Obstetrics & Gynecology
DX: Z12.31 Encounter for screening mammogram for malignant neoplasm of breast (principal); R92.333 Mammographic heterogeneous density, bilateral breasts; Z78.0 Asymptomatic menopausal state; Z80.3 Family history of malignant neoplasm of breast; Z92.0 Personal history of contraception
CPT/HCPCS: 77063; 77067